=== PATIENT | male | born 1950 | race Asian ===

== ENCOUNTER 2022-09-20 18:55 | Inpatient (IN) | payer OTHER, MEDICAID ==
[~2022-09-20] VITALS: Ht 172.7 cm; Wt 74.8 kg
[~2022-09-20 18:55] MED LIST: ALLO100T PO; DONE10TA44 PO; INDO-12 PO; LACT1CAP72 PO; LIP20 PO; MEMA10TA56 PO; METO25TA3 PO; TAMS-11 PO; VIT500TA8 PO
[2022-09-20 19:07] VITALS: BP_SYST 123; PULSE 142; PULSE 68; RESP 18; TEMP 98.2; O2SAT 98
--- NOTE | 2022-09-20 19:07 | NUR ---
Placed in room 07 . Placed on grocery clerk stocking, blood pressure machine and pulse oximeter. To gown for exam. Side rails up. Report given to JOSE ENRIQUE RUTHERFORD
--- NOTE | 2022-09-20 19:09 | NUR ---
Patient BIBA for c/o gen weakness from home. Patient has PMH type 2 DM and was 258 on scene. Patient VSS: 123/80, hr: 98, %O2: 99%. T- 98.2 F. Report received from [facility], [facility] ambulance [id number]. Patient alert and oriented x4. Respiration even and unlabored. Will continue to monitor.
[2022-09-20 19:42] LABS: BASOPHILS % (AUTO) 0.2 % (0.0-2.0); EOSINOPHILS % (AUTO) 0.2 % (0.0-4.0); HEMATOCRIT 41.1 % (36-54); HEMOGLOBIN 13.6 g/dL (14.0-18.0); LYMPHOCYTES % (AUTO) 8.4 % (20.5-51.5); MEAN CORPUSCULAR HEMOGLOBIN 30 pg (27-31); MEAN CORPUSCULAR HGB CONC 33 % (32-36); MEAN CORPUSCULAR VOLUME 91 fL (79.0-98.0); MONOCYTES % (AUTO) 8.9 % (1.7-9.3); NEUTROPHILS # (AUTO) 9.4 K/uL (1.8-7.7); NEUTROPHILS % (AUTO) 82.3 % (40.0-70.0); PLATELET COUNT (AUTO) 195 K/uL (130-430); RED BLOOD CELL COUNT(AUTO) 4.53 MIL/uL (4.2-6.2); RED CELL DISTRIBUTION WIDTH 13.5 % (9.0-15.0); WHITE BLOOD COUNT (AUTO) 11.5 K/uL (4.8-10.8)
[2022-09-20] MEDS ORDERED: dilTIAZem HCL IVP 5 MG/ML VIAL IVP ONE (19:45)
[2022-09-20 19:54] LABS: CALCIUM 7.9 mg/dL (8.4-11.0); CREATININE 1.24 mg/dL (0.55-1.30)
[2022-09-20 19:59] LABS: ALBUMIN 3.4 g/dL (3.4-4.8); TOTAL BILIRUBIN 1.6 mg/dL (0.0-1.0)
[2022-09-20] MEDS ORDERED: NACL 0.9% 2,000 ML IV ONE (20:15)
[2022-09-20] MEDS ORDERED: cefTRIAXone 1 GM IVPB PREMIX 50 ML IV ONE (20:15)
[2022-09-20] MEDS ORDERED: METF-379 PO (20:20)
[2022-09-20] MEDS ORDERED: METO-442 PO (20:20)
--- NOTE | 2022-09-20 20:20 | NUR ---
Medication reconciliation completed with information provided by PATIENT'S . Any prior medication reconciliation on file was reviewed and corrected.
[2022-09-20 21:01] LABS: BILIRUBIN,URINE NEGATIVE (NEGATIVE); CLARITY/URINE CLEAR (CLEAR); GLUCOSE,URINE TRACE (NEGATIVE); KETONES,URINE NEGATIVE (NEGATIVE); LEUKOCYTE ESTERASE ,URINE NEGATIVE (NEGATIVE); NITRITE, URINE NEGATIVE (NEGATIVE); PROTEIN URINE NEGATIVE (NEGATIVE); UROBILINOGEN,URINE 0.2 (0.2-1.0)
[2022-09-20 21:04] LABS: BLOOD, URINE TRACE (NEGATIVE); COLOR,URINE STRAW (YELLOW)
[2022-09-20 21:09] LABS: BACTERIA,URINE RARE /HPF (None Seen); RBC,URINE 0-3 /HPF (0-3); WBC,URINE 0-3 /HPF (0-3)
[2022-09-20 21:10] LABS: MUCUS,URINE None Seen /LPF (None Seen)
[2022-09-20] MEDS ORDERED: ACETAMINOPHEN 500 MG TABLET PO ONE (22:00)
[2022-09-20] MEDS ORDERED: ONDANSETRON HCL 4 MG/2 ML VIAL IVP PRN (22:30)
[2022-09-20] MEDS ORDERED: ACETAMINOPHEN 325 MG TABLET PO PRN (22:30)
--- NOTE | 2022-09-20 22:35 | NUR ---
Admit bed requested Patient will be admitted to care of . Admitted to TELEMETRY unit. UNCONTROLLED ATRIAL FIBRILLATION Inpatient (Yes or No) Y Observation (Yes or No) N Orientation concerns or request close to nursing station (Yes or No) Y Covid Status N/A On vent or bipap N Isolation requirements N Needs a sitter N From Home (Yes or if No enter name of facility) Y Requires Dialysis (Yes or No) N Med Rec Completed (Yes of No) Y
[2022-09-20] MEDS ORDERED: INDOMETHACIN 25 MG CAPSULE(INDOCIN) PO PRN (22:45)
[2022-09-20] MEDS ORDERED: METOPROLOL TARTRATE 5 MG/5 ML VIAL IVP ONE (23:00)
--- NOTE | 2022-09-20 23:53 | NUR ---
Patient will be admitted to care of JOSE ENRIQUE Bean. Admitted to unit. Will go to room . Belongings list completed. Complete and up to date summary report printed. SBAR report to be given at bedside with opportunity for questions.
[2022-09-21] VITALS (8 sets, daily range): BP systolic 93–126; PULSE 82–150; RESP 16–18; TEMP 96.3–98.9; O2SAT 95–99
--- NOTE | 2022-09-21 00:33 | NUR ---
Admission Note Received patient from ER with diagnosis of A FIB. Initial Plan of Care discussed-with family & patient. Family at bedside. Oriented to room, call light, pain management and safety procedures explained / FALL RISK MEASURES IMPLEMENTED call campos given to patient assist as needed continue to monitor / .
[2022-09-21] MEDS ORDERED: KCL 20 mEq in NS 1000 mL 1,000 ML IV ONE (02:13)
[2022-09-21] MEDS: POTASSIUM CHLORIDE 20 MEQ in NACL 0.9% 1,000 ML IV SCH ×3 (02:40→17:40)
--- NOTE | 2022-09-21 02:43 | NUR ---
Hourly Rounding patient Resting is verbally Responsive / Respirations Remain Regular also unlabored kept clean also dry as needed / monitor .
[2022-09-21 05:33] LABS: BASOPHILS % (AUTO) 0.4 % (0.0-2.0); EOSINOPHILS # (AUTO) 0.1 K/uL (0.0-0.4); HEMATOCRIT 36.4 % (36-54); HEMOGLOBIN 12.2 g/dL (14.0-18.0); LYMPHOCYTES # (AUTO) 1.2 K/uL (1.0-5.5); LYMPHOCYTES % (AUTO) 16.7 % (20.5-51.5); MEAN CORPUSCULAR HEMOGLOBIN 30 pg (27-31); MEAN CORPUSCULAR HGB CONC 33 % (32-36); MEAN CORPUSCULAR VOLUME 90 fL (79.0-98.0); MONOCYTES # (AUTO) 0.8 K/uL (0.0-1.0); MONOCYTES % (AUTO) 11.4 % (1.7-9.3); NEUTROPHILS # (AUTO) 5.2 K/uL (1.8-7.7); NEUTROPHILS % (AUTO) 70.5 % (40.0-70.0); PLATELET COUNT (AUTO) 162 K/uL (130-430); RED BLOOD CELL COUNT(AUTO) 4.03 MIL/uL (4.2-6.2); RED CELL DISTRIBUTION WIDTH 13.4 % (9.0-15.0); WHITE BLOOD COUNT (AUTO) 7.4 K/uL (4.8-10.8)
[2022-09-21 06:33] LABS: CREATININE 1.03 mg/dL (0.55-1.30); PHOSPHORUS 3.1 mg/dL (2.7-4.5); THYROID STIMULATING HORMONE 1.17 uIu/mL (0.34-4.82); TOTAL BILIRUBIN 1.7 mg/dL (0.0-1.0)
--- NOTE | 2022-09-21 07:29 | NUR ---
Initial note: report received from Lucho. Patient awake alert x3 with little confusion. No pain or discomfort at this time. Bed in the lowest position and side rails x3 up. Bed alarm is on. Assessment is done and vital checked. Will continue patient care.
[2022-09-21] MEDS: MEMANTINE HCL 5 MG TABLET PO SCH ×2 (08:43→20:29)
[2022-09-21] MEDS: ALLOPURINOL 100 MG TABLET (ZYLOPRIM) PO SCH (08:43)
[2022-09-21] MEDS: metFORMIN HCL 500 MG TABLET PO SCH (08:43)
[2022-09-21] MEDS ORDERED: CALCIUM GLUCONATE 1 GM in NS 100 ML IV ONE (09:00)
[2022-09-21] MEDS ORDERED: METOPROLOL TARTRATE 25 MG TABLET PO SCH (09:00)
[2022-09-21] MEDS: cefTRIAXone 2 GM IVPB PREMIX 50 ML IV SCH (09:29)
--- NOTE | 2022-09-21 09:52 | NUR ---
Note: Dr. Dalton is consulted and at the bedside seeing patient. Family at the bedside. Plan of care is discussed with family. No pain or discomfort at this time.
--- NOTE | 2022-09-21 12:01 | NUR ---
Note: patient is awake and family at the bedside. Assisting with the lunch. No pain or discomfort at this time. Will continue to monitor.
--- NOTE | 2022-09-21 14:55 | NUR ---
P.T. NOTES P.T. EVAL COMPLETED; REFER TO EVAL FOR DETAILS.
--- NOTE | 2022-09-21 19:15 | NUR ---
Closing note: patient is resting in bed. Heart rates goes up to 150 by telemetry machine. Report is given to Oscar. Family is at the bedside. No pain or discomfort and patient is asymptomatic. Endorse to continue patient care and follow up with the heart rate with Dr. Dalton.
--- NOTE | 2022-09-21 19:54 | NUR ---
PAGED PAGED DOCTOR GILL FOR ORDERS
--- NOTE | 2022-09-21 20:00 | NUR ---
pt.assessed.v/s assessed values note h/r status;150bmp.to f/u page ;cardio.no c/o pain,nausea.iv access intact;patent.no c/o pain,nausea.pt.assessed for cleanliness pt.repositioned.call light/telephone placed w/in access of the pt.
[2022-09-21] MEDS: ATORVASTATIN 20 MG TABLET PO SCH (20:29)
[2022-09-21] MEDS: DONEPEZIL HCL 5 MG TABLET (ARICEPT) PO SCH (20:29)
--- NOTE | 2022-09-21 20:30 | NUR ---
blood glucose assessed value;173mg/dl.
[2022-09-21] MEDS: APIXABAN 2.5 MG TABLET PO SCH (20:33)
[2022-09-21] MEDS: METOPROLOL TARTRATE 25 MG TABLET PO SCH (20:34)
[2022-09-21] MEDS: INSULIN REGULAR, HUMAN 100 UNITS/ML, 3 ML VIAL (humuLIN R) SUBCUT PRN (20:56)
--- NOTE | 2022-09-21 21:00 | NUR ---
2100p medications administered.pt.presents challenge swallow capacity;function.medications crushed to facilitate swallow capacity;function.insulin;regular:6-u administered per sliding scale.per dr.samant sorenson;50mg po administered;2/t rapid heart rate.
--- NOTE | 2022-09-21 22:00 | NUR ---
pt.assessed.note heart rate;150bmp.cardizem;10mg ivp administered per order/parameters.no c/o pain,nausea. pt assessed for cleanliness.pt repositioned.call light/telephone placed w/in access of the pt.
[2022-09-21] MEDS: dilTIAZem HCL IVP 5 MG/ML VIAL IVP PRN (23:01)
[2022-09-22] VITALS (7 sets, daily range): BP systolic 113–139; PULSE 85–141; RESP 16–20; TEMP 97.2–100.5; O2SAT 93–99
--- NOTE | 2022-09-22 | NUR ---
pt.assessed.v/s assessed values note h/r status wnl.no c/o pain,nausea,no requests posited@this hour.pt.assessed for cleanliness pt. repositioned.call light/telephone w/in access of the pt.
--- NOTE | 2022-09-22 03:25 | NUR ---
Consultation Paged Reason for Consultation: fever Was consult called: Y Person who was notified: Humera Consulting Physician: Jose De Jesus Jaime Ordering Physician: Dr. Hernandez
[2022-09-22] MEDS: POTASSIUM CHLORIDE 20 MEQ in NACL 0.9% 1,000 ML IV SCH ×2 (05:18→17:46)
[2022-09-22 05:56] LABS: BASOPHILS # (AUTO) 0.1 K/uL (0.0-0.2); BASOPHILS % (AUTO) 0.8 % (0.0-2.0); EOSINOPHILS % (AUTO) 0.3 % (0.0-4.0); HEMATOCRIT 36.5 % (36-54); HEMOGLOBIN 12.2 g/dL (14.0-18.0); LYMPHOCYTES # (AUTO) 1.6 K/uL (1.0-5.5); LYMPHOCYTES % (AUTO) 19.5 % (20.5-51.5); MEAN CORPUSCULAR HEMOGLOBIN 30 pg (27-31); MEAN CORPUSCULAR HGB CONC 34 % (32-36); MEAN CORPUSCULAR VOLUME 91 fL (79.0-98.0); MONOCYTES # (AUTO) 0.9 K/uL (0.0-1.0); MONOCYTES % (AUTO) 10.3 % (1.7-9.3); NEUTROPHILS # (AUTO) 5.7 K/uL (1.8-7.7); NEUTROPHILS % (AUTO) 69.1 % (40.0-70.0); PLATELET COUNT (AUTO) 176 K/uL (130-430); RED BLOOD CELL COUNT(AUTO) 4.03 MIL/uL (4.2-6.2); RED CELL DISTRIBUTION WIDTH 13.4 % (9.0-15.0); WHITE BLOOD COUNT (AUTO) 8.3 K/uL (4.8-10.8)
--- NOTE | 2022-09-22 06:00 | NUR ---
pt.assessed.v/s assessed values note h/r status wnl.no c/o pain,nausea.blood glucose assessed value:135mg/dl. pt.assessed for cleanliness pt.repositioned.call light/telephone placed w/in access of the pt.
[2022-09-22 06:27] LABS: ALBUMIN 2.8 g/dL (3.4-4.8); CALCIUM 8.3 mg/dL (8.4-11.0); CREATININE 1.01 mg/dL (0.55-1.30); THYROID STIMULATING HORMONE 0.8 uIu/mL (0.36-3.74); TOTAL BILIRUBIN 1.6 mg/dL (0.0-1.0)
[2022-09-22] MEDS: ALLOPURINOL 100 MG TABLET (ZYLOPRIM) PO SCH (08:46)
[2022-09-22] MEDS: metFORMIN HCL 500 MG TABLET PO SCH (08:47)
[2022-09-22] MEDS: MEMANTINE HCL 5 MG TABLET PO SCH ×2 (08:48→21:32)
[2022-09-22] MEDS: METOPROLOL TARTRATE 25 MG TABLET PO SCH ×2 (08:48→21:32)
[2022-09-22] MEDS: cefTRIAXone 2 GM IVPB PREMIX 50 ML IV SCH (08:49)
[2022-09-22] MEDS: APIXABAN 2.5 MG TABLET PO SCH ×2 (08:57→21:37)
--- NOTE | 2022-09-22 10:25 | NUR ---
flu- ag test sample sent to lab
[2022-09-22] MEDS ORDERED: ACETAMINOPHEN 500 MG TABLET PO PRN (17:53)
--- NOTE | 2022-09-22 18:40 | NUR ---
PATIENT HAD FEVER AND ELEVATED HEART RATE PATIENT HAD FEVER OF 100.5, TYLENOL 500 MG PO GIVEN PRN, ALSO LATER HAD ELEVATED HEART RATE 139, DETIAZEM 10MG IV GIVEN PER PRN ORDER. RECHECKED AGAIN, FEVER DROPPED TO 99.5 AND ALSO COOLING MEASURE APPLIED, ICE PACKS APPLIED. THE HEART RATE CAME DOWN TO 99
[2022-09-22] MEDS: dilTIAZem HCL IVP 5 MG/ML VIAL IVP PRN (18:54)
--- NOTE | 2022-09-22 19:33 | NUR ---
CLOSING NOTE. PATIENT RESTING IN BED, FAMILY AT BEDSIDE, NOT IN DISTRESS , HEART RATE IN 90'S. ENDORSED CARE TO THE NIGHT NURSE
--- NOTE | 2022-09-22 21:16 | NUR ---
rounds Dr. Umanzor (ID) rounds.
[2022-09-22] MEDS: ATORVASTATIN 20 MG TABLET PO SCH (21:32)
[2022-09-22] MEDS: DONEPEZIL HCL 5 MG TABLET (ARICEPT) PO SCH (21:32)
[2022-09-23 01:05] VITALS: BP_SYST 130; PULSE 95; RESP 18; TEMP 97; O2SAT 100
[2022-09-23] MEDS: POTASSIUM CHLORIDE 20 MEQ in NACL 0.9% 1,000 ML IV SCH ×2 (05:10→21:37)
--- NOTE | 2022-09-23 06:37 | NUR ---
Closing notes Pt awake, no s/s distress noted, afebrile throughout the night. BS checked 122. Pt incontinent of urine, pericare provided with RESPIRATORY PHYSICIAN assist. Call light within reach. Bed low, locked, siderails up x4, alarm on. To monitor.
[2022-09-23 07:30] VITALS: O2SAT 98
--- NOTE | 2022-09-23 07:30 | NUR ---
Initial note: recieved report from noc shift. Patient awake alert x2 with little confusion. No pain or discomfort at this time. Bed in the lowest position and side rails x3 up. Bed alarm is on. Assessment is done and vital checked. Will continue patient care.
[2022-09-23 07:53] VITALS: BP_SYST 123; PULSE 100; RESP 16; TEMP 97.6
[2022-09-23] MEDS: ALLOPURINOL 100 MG TABLET (ZYLOPRIM) PO SCH (08:40)
[2022-09-23] MEDS: cefTRIAXone 2 GM IVPB PREMIX 50 ML IV SCH (08:40)
[2022-09-23] MEDS: MEMANTINE HCL 5 MG TABLET PO SCH ×2 (08:42→21:35)
[2022-09-23] MEDS: metFORMIN HCL 500 MG TABLET PO SCH (08:42)
[2022-09-23] MEDS: METOPROLOL TARTRATE 25 MG TABLET PO SCH ×2 (08:43→21:36)
[2022-09-23] MEDS: APIXABAN 2.5 MG TABLET PO SCH ×2 (08:45→21:45)
[2022-09-23 11:20] VITALS: BP_SYST 113; PULSE 98; RESP 16; TEMP 97.1; O2SAT 99
--- NOTE | 2022-09-23 11:30 | NUR ---
PATIENT ROUNDS Patient resting in bed, family at bedside. No pain or discomfort at this time. Bed in the lowest position and side rails x3 up. Bed alarm is on. Will continue patient care.
[2022-09-23] MEDS: INSULIN REGULAR, HUMAN 100 UNITS/ML, 3 ML VIAL (humuLIN R) SUBCUT PRN ×2 (11:54→21:44)
[2022-09-23 15:27] VITALS: BP_SYST 147; PULSE 110; RESP 17; TEMP 98.1; O2SAT 96
--- NOTE | 2022-09-23 17:15 | NUR ---
Patient has fever and elevated heart rate: patient has fever of 99.5, ice packs applied and all cooling measures in place. also the heart rate elevated Cardiazem iv given as ordered.
[2022-09-23] MEDS: dilTIAZem HCL IVP 5 MG/ML VIAL IVP PRN (17:22)
--- NOTE | 2022-09-23 18:41 | NUR ---
CLOSING NOTE Patient resting in bed, family at bedside, HR is110 also the heart rate. Side railsx2 up, not in distress, will endorse care to the maintenance supervisor 2nd shift Addendum: 09/23/22 at 1853 by Wero Mcnulty RN the temp is 97.0
[2022-09-23 20:30] VITALS: BP_SYST 129; PULSE 123; RESP 18; TEMP 98.8; O2SAT 98
--- NOTE | 2022-09-23 20:30 | NUR ---
Opening notes Pt alert, awake, resting. No fever 98.8. Family at bedside. Pt incontinent of urine, MINERAL ENGINEER and family assisted with bedbath/pericare. Call light within reach. Bed low, locked, siderails up x3, alarm on. To monitor.
[2022-09-23] MEDS: DONEPEZIL HCL 5 MG TABLET (ARICEPT) PO SCH (21:35)
[2022-09-23] MEDS: ATORVASTATIN 20 MG TABLET PO SCH (21:36)
[2022-09-24 00:49] VITALS: BP_SYST 128; PULSE 107; RESP 18; TEMP 98.7; O2SAT 98
--- NOTE | 2022-09-24 07:30 | NUR ---
Initial note: report received from Ashley. Patient is awake but confused. is at the bedside. Assessment is done and vital checked. No pain or discomfort at this time. Will continue patient care. Bed alarm is on.
[2022-09-24 08:00] VITALS: BP_SYST 142; PULSE 64; RESP 18; TEMP 99.2; O2SAT 93
[2022-09-24] MEDS: cefTRIAXone 2 GM IVPB PREMIX 50 ML IV SCH (09:50)
[2022-09-24] MEDS: POTASSIUM CHLORIDE 20 MEQ in NACL 0.9% 1,000 ML IV SCH ×2 (09:51→21:41)
[2022-09-24] MEDS: metFORMIN HCL 500 MG TABLET PO SCH (09:51)
[2022-09-24] MEDS: METOPROLOL TARTRATE 25 MG TABLET PO SCH ×2 (09:51→21:30)
[2022-09-24] MEDS: ALLOPURINOL 100 MG TABLET (ZYLOPRIM) PO SCH (09:52)
[2022-09-24] MEDS: MEMANTINE HCL 5 MG TABLET PO SCH ×2 (09:52→21:31)
[2022-09-24] MEDS: APIXABAN 2.5 MG TABLET PO SCH ×2 (09:53→21:30)
[2022-09-24 11:24] VITALS: BP_SYST 112; PULSE 71; RESP 16; TEMP 97.9; O2SAT 96
[2022-09-24] MEDS: INSULIN REGULAR, HUMAN 100 UNITS/ML, 3 ML VIAL (humuLIN R) SUBCUT PRN ×3 (11:37→21:38)
--- NOTE | 2022-09-24 13:00 | NUR ---
Note: patient is resting in bed. Family is at the bedside. No pain or discomfort at this time. will continue patient care.
--- NOTE | 2022-09-24 13:18 | NUR ---
PHYSICAL THERAPY CO-SIGN The Physical Therapy Progress Notes documented by Coffee Bar Attendant have been reviewed. Reviewed/Co-Signed by: Nagi Land Documentation Done by:EDDI NAYAK Addendum: 09/24/22 at 1318 by Nagi Land PT Amended: Links added.
[2022-09-24 15:09] VITALS: BP_SYST 125; PULSE 110; RESP 16; TEMP 97; O2SAT 96
[2022-09-24] MEDS: dilTIAZem HCL IVP 5 MG/ML VIAL IVP PRN (16:39)
--- NOTE | 2022-09-24 19:40 | NUR ---
Closing note: reported to Shireen. patient is awake but confused. Family is at the bedside. No pain or discomfort at this time. Endorse to continue patient care.
[2022-09-24 20:00] VITALS: BP_SYST 140; PULSE 120; RESP 18; TEMP 98.7; O2SAT 96
[2022-09-24] MEDS: DONEPEZIL HCL 5 MG TABLET (ARICEPT) PO SCH (21:31)
[2022-09-24] MEDS: ATORVASTATIN 20 MG TABLET PO SCH (21:31)
--- NOTE | 2022-09-24 21:34 | NUR ---
Dietitian Recommendations *Recommend CCHO, Cardiac Diet Chopped textures for ease of chewing *Consider BUSINESS MAIL ENTRY CLERK eval Monitor and evaluate PO intakes, GI, skin, labs Please refer to Nutrition Assessment for details NAVEEN REESE Addendum: 09/24/22 at [address] Amended: Links added.
[2022-09-25] VITALS: BP_SYST 123; PULSE 121; RESP 18; TEMP 98.7; O2SAT 96
--- NOTE | 2022-09-25 07:30 | NUR ---
Initial note: report received from [place]. patient is awake but confused. Family is at the bedside. Assessment is done and vital checked. No pain or discomfort at this time. Bed in the lowest position and side rails x3 up. Will continue patient care.
--- NOTE | 2022-09-25 07:46 | NUR ---
Report Given to JOSE ENRIQUE Galvan SBAR updated and given interventions done Patient had incontinent voids during night. Patient is clean and Dry with new linen and gown change.
[2022-09-25 08:00] VITALS: BP_SYST 120; PULSE 117; RESP 18; TEMP 97.8; O2SAT 99
[2022-09-25] MEDS: cefTRIAXone 2 GM IVPB PREMIX 50 ML IV SCH (08:57)
[2022-09-25] MEDS: APIXABAN 2.5 MG TABLET PO SCH (08:58)
[2022-09-25] MEDS: METOPROLOL TARTRATE 25 MG TABLET PO SCH (08:58)
[2022-09-25] MEDS: MEMANTINE HCL 5 MG TABLET PO SCH (08:59)
[2022-09-25] MEDS: metFORMIN HCL 500 MG TABLET PO SCH (08:59)
[2022-09-25] MEDS: ALLOPURINOL 100 MG TABLET (ZYLOPRIM) PO SCH (08:59)
[2022-09-25] MEDS ORDERED: FUROSEMIDE 20 MG TABLET PO ONE (09:15)
--- NOTE | 2022-09-25 09:59 | NUR ---
SENT PACKET TO [facility] FOR SNF. TOLD MICHELLE IT WAS COMING.
--- NOTE | 2022-09-25 10:26 | NUR ---
HEARD BACK FROM MICHELLE THEY CAN TAKE MR SOUZA AT [facility] TO ROOM 105B
[2022-09-25] MEDS: POTASSIUM CHLORIDE 20 MEQ in NACL 0.9% 1,000 ML IV SCH (11:02)
[2022-09-25 11:10] VITALS: BP_SYST 117; PULSE 110; RESP 16; TEMP 99; O2SAT 99
--- NOTE | 2022-09-25 11:27 | NUR ---
[facility] WILL BE PICKING UP MR SOUZA AT 1:30PM. WILL BE TRANSPORTED TO [facility] TO ROOM 105B
--- NOTE | 2022-09-25 11:35 | NUR ---
paged dr tejada for discharge order waiting for call back
[2022-09-25] MEDS: INSULIN REGULAR, HUMAN 100 UNITS/ML, 3 ML VIAL (humuLIN R) SUBCUT PRN (12:22)
[2022-09-25 13:30] VITALS: BP_SYST 117; PULSE 110; RESP 16; TEMP 99; O2SAT 99
--- NOTE | 2022-09-25 14:10 | NUR ---
D/C Patient Patient given medication reconciliation form and D/C instructions. Exit Care provided. Patient verbalized understanding. MD discussed with patient the results and treatment provided. Ambulatory with steady gait for discharge to home. Patient in stable condition, ID band removed. IV catheter remained as ordered. Rx of given. Patient educated on pain management. All belongings sent with patient. is at the bedside. Patient is transferred via gurney. No pain or discomfort. Call [facility] and spoke to Tigist to report. Discharge package is sent with patient. [facility] is here to [facility].
--- NOTE | 2022-09-25 16:27 | NUR ---
PHYSICAL THERAPY CO-SIGN The Physical Therapy Progress Notes documented by Computer Builder have been reviewed. Reviewed/Co-Signed by: Nagi Land Documentation Done by:EDDI NAYAK Addendum: 09/25/22 at 1627 by Nagi Land PT Amended: Links added.
== END 2022-09-25 14:10 | DRG 872 ==
LOC: SED 18:55 → STU 22:28
PROVIDERS: ADMIT Family Medicine; ATTEND Family Medicine
DX: A41.9 Sepsis, unspecified organism (principal); E87.20 Acidosis, unspecified; I69.354 Hemiplegia and hemiparesis following cerebral infarction affecting left non-dominant side; I48.20 Chronic atrial fibrillation, unspecified; N30.00 Acute cystitis without hematuria; E86.0 Dehydration; G30.9 Alzheimer's disease, unspecified; F02.80 Dementia in other diseases classified elsewhere, unspecified severity, without behavioral disturbance, psychotic disturbance, mood disturbance, and anxiety; E11.9 Type 2 diabetes mellitus without complications; M10.9 Gout, unspecified; F01.50 Vascular dementia, unspecified severity, without behavioral disturbance, psychotic disturbance, mood disturbance, and anxiety; Z86.16 Personal history of COVID-19
CPT/HCPCS: 36415; 71045; 76376; 80053; 80061; 81000; 82962; 83605; 83735; 83880; 84100; 84443; 84484; 85025; 85651-TC; 87040; 87086; 93005; 96365; 96375; 97110-GP; 97112-GP; 97116-GP; 97530-GP; 99291; G0378; J0610; J0696; J1815; J3480; J3490; J7030; J7042; J7060